=== PATIENT | female | born 1960 | race Caucasian/White ===

== ENCOUNTER 2019-05-20 06:11 | Day surgery (SDC) | payer BC ==
[2019-05-17 13:53] LABS: BASOPHILS # (AUTO) 0.05 x10^3/uL (0-0.1); BASOPHILS % (AUTO) 1 % (0-1); EOSINOPHILS # (AUTO) 0.39 x10^3/uL (0-0.4); EOSINOPHILS % (AUTO) 7 % (1-7); LYMPHOCYTES # (AUTO) 1.67 x10^3/uL (1-3.4); LYMPHOCYTES % (AUTO) 30 % (22-44); MD NO; MEAN CORPUSCULAR HEMOGLOBIN 31.8 pg (27.0-34.8); MEAN CORPUSCULAR HGB CONC 33.5 g/dL (32.4-35.8); MONOCYTES # (AUTO) 0.48 x10^3/uL (0.2-0.8); MONOCYTES % (AUTO) 9 % (2-9); NEUTROPHILS # (AUTO) 2.97 x10^3/uL (1.8-6.8); NEUTROPHILS % (AUTO) 53 % (42-75); PLATELET COUNT 287 x10^3/uL (130-400); RED BLOOD COUNT 4.56 x10^6/uL (3.82-5.3); RED CELL DISTRIBUTION WIDTH 13.8 % (9.6-15.2)
[2019-05-17 14:02] LABS: INTERNATIONAL NORMALIZED RATIO 1.01 (0.93-1.1); PROTHROMBIN TIME 10.7 Seconds (9.6-11.5)
[~2019-05-20] VITALS: Ht 154.9 cm; Wt 62.0 kg
[~2019-05-20 06:11] MED LIST: ESTR0.5T PO; FOLI-17 PO; METH2.5T PO; PROG100C16 PO
[2019-05-20 07:17] VITALS: BP 147/92
[2019-05-20] MEDS ORDERED: SODIUM CHLORIDE 0.9% 1,000 ML IV SCH (07:30)
[2019-05-20] MEDS ORDERED: FENTANYL PF 100 MCG/2ML ONE (07:31)
[2019-05-20] MEDS ORDERED: MIDAZOLAM 1 MG/ML, 5ML ONE (07:32)
[2019-05-20] MEDS ORDERED: LIDOCAINE GEL 2%, 5ML ONE (08:00)
[2019-05-20] MEDS ORDERED: LIDOCAINE 2%, 20ML ONE (08:00)
[2019-05-20] MEDS ORDERED: LIDOCAINE 4% TOPICAL SOLUTION 50 ML ONE (08:00)
[2019-05-20] MEDS ORDERED: ONDANSETRON 2MG/ML, 2ML ONE (08:54)
== END 2019-05-20 11:50 | disposition home or self-care (01) ==
LOC: OUT 06:11
PROVIDERS: ATTEND Internal Medicine
DX: R91.8 Other nonspecific abnormal finding of lung field (principal); R91.1 Solitary pulmonary nodule; Z91.040 Latex allergy status; Z88.8 Allergy status to other drugs, medicaments and biological substances; Z79.899 Other long term (current) drug therapy
CPT/HCPCS: 31624; 36415; 85025; 85610; 85730; 87070; 87102; 87116; 87205; 87206; 88112; 88305; 88312; 99152; 99153; J2250; J3010; J7030; 31622

== ENCOUNTER 2019-05-22 08:52 | Emergency (ER) | payer BC ==
[~2019-05-22] VITALS: Ht 154.9 cm; Wt 62.3 kg
--- NOTE | 2019-05-22 09:35 | NUR ---
PT TO ROOM FROM LOBBY AT THIS TIME.
--- NOTE | 2019-05-22 09:41 | NUR ---
58 Y/O FEMALE PRESENTS TO ED WITH C/O CP. PER PT "I WAS HERE FRIDAY FOR A BRONCHOSCOPY. I DIDN'T FEEL VERY GOOD WHEN I LEFT AND THEY SAID IF I HAVE ANY TYPE OF SYMPTOMS TO COME TO ER. I'VE HAD SOME CHEST PAIN. RIGHT IN THE CENTER. IT JUST FEELS LIKE PRESSURE. THE NAUSEA HAS BEEN BAD AND THE MEDS AREN'T HELPING." BEDSIDE. PT PLACED ON CONT PULSE OX,NIBP. NO C/O D, TRAUMA,SYNCOPE, SOB
--- NOTE | 2019-05-22 10:24 | NUR ---
PT TO IMAGING
[2019-05-22 10:29] LABS: BASOPHILS # (AUTO) 0.03 x10^3/uL (0-0.1); BASOPHILS % (AUTO) 1 % (0-1); EOSINOPHILS # (AUTO) 0.38 x10^3/uL (0-0.4); EOSINOPHILS % (AUTO) 9 % (1-7); LYMPHOCYTES # (AUTO) 1.17 x10^3/uL (1-3.4); LYMPHOCYTES % (AUTO) 27 % (22-44); MD NO; MEAN CORPUSCULAR HGB CONC 33.8 g/dL (32.4-35.8); MEAN CORPUSCULAR VOLUME 94.6 fL (80-100); MEAN PLATELET VOLUME 7.9 fL (7.4-10.4); MONOCYTES # (AUTO) 0.39 x10^3/uL (0.2-0.8); MONOCYTES % (AUTO) 9 % (2-9); NEUTROPHILS # (AUTO) 2.43 x10^3/uL (1.8-6.8); NEUTROPHILS % (AUTO) 55 % (42-75); PLATELET COUNT 269 x10^3/uL (130-400); RED BLOOD COUNT 4.77 x10^6/uL (3.82-5.3); RED CELL DISTRIBUTION WIDTH 13.7 % (9.6-15.2)
[2019-05-22 10:39] LABS: ALBUMIN 3.9 g/dL (3.4-5.0); ANION GAP 8 mmol/L (5-15); CALCIUM 9.3 mg/dL (8.5-10.1); CHLORIDE 109 mmol/L (98-107); CREATININE 0.88 mg/dL (0.55-1.02)
[2019-05-22 10:43] LABS: TROPONIN I < 0.015 ng/mL (0.000-0.045)
--- NOTE | 2019-05-22 10:49 | NUR ---
PT BACK FROM IMAGING. PT RESTING ON GURNEY. NADN BEDSIDE. NO NEEDS REQUESTED AT THIS TIME.
[2019-05-22 11:47] VITALS: BP 156/87
--- NOTE | 2019-05-22 11:47 | NUR ---
Patient/Caregiver given discharge instructions and they have confirmed that they understand the instructions. Patient ambulatory with steady gait. PT LEFT WITH ALL PERSONAL BELONGINGS.
== END 2019-05-22 11:49 | disposition home or self-care (01) ==
LOC: ED 11:20
DX: R09.1 Pleurisy (principal); J45.909 Unspecified asthma, uncomplicated
CPT/HCPCS: 36415; 71046; 80048; 82040; 83880; 84484; 85025; 93005; 99284; J7512

== ENCOUNTER → 2019-12-31 | Outpatient (CLI) | payer BC, OTHER | END | disposition home or self-care (01) | LOC: CFH 13:45 | PROVIDERS: ATTEND Internal Medicine | DX: R91.1 Solitary pulmonary nodule (principal) | CPT/HCPCS: 71250 ==

== ENCOUNTER → 2020-02-16 | Outpatient (CLI) | payer BC, OTHER | END | disposition home or self-care (01) | LOC: PETCFH 12:28 | PROVIDERS: ATTEND Internal Medicine | DX: R91.8 Other nonspecific abnormal finding of lung field (principal); E06.9 Thyroiditis, unspecified | CPT/HCPCS: 78815; A9552 ==